=== PATIENT | female | born 1975 | race Caucasian/White ===

== ENCOUNTER 2017-08-28 08:14 | Emergency (ER) | payer OTHER ==
[~2017-08-28] VITALS: Ht 167.6 cm; Wt 149.7 kg
--- NOTE | ~2017-08-28 | EKG ---
[place] [address] [facility] [place] [address] ELECTROCARDIOGRAM REPORT Name: JUMA MAY Room #: PRE [facility]#: [id number] Admission: Attend Phys: Discharge: Date of : 77 Report #: [id number] THIS REPORT FOR: //name// [facility] ED Test Date: 2017-08-28 Test Time: 08:25:51 Pat Name: JUMA MAY Department: Room: Gender: F Wellness Nurse: FRANCHESKA : 1975 Requested By: Tonny Gann Order Number: [id number] MD: Chris Gillespie Measurements Intervals [place] Rate: 85 P: 38 [place]: 141 QRS: -16 QRSD: 98 T: 17 QT: 366 QTc: 436 Interpretive Statements Sinus rhythm Left ventricular hypertrophy Compared to ECG 12/22/2003 15:42:50 No significant change was found Electronically Signed On 08-28-2017 8:55:20 [employer] by Chris Gillespie [email or web address] <ELECTRONICALLY SIGNED> By: Chris Gillespie MD, [facility] 08/28/17 0855 0825 0825 Chris Gillespie MD, FACC /EPI
[~2017-08-28 08:14] MED LIST: ACYCLOVIR 200200 MG PO; COZAAR 50 MG TA50 M1 PO; HYDROCODON-ACE1 EAC7 PO; LASIX 20 MG TAB20 MG PO; LOPERAMIDE 2 MG2 M1 PO; LOSARTAN-HCTZ1 EACH PO; TORADOL 10 MG T10 MG PO
[2017-08-28] MEDS ORDERED: ASPIR 8181 MG PO (08:22)
[2017-08-28] MEDS ORDERED: FISH OIL 1,001000 M2 PO (08:22)
[2017-08-28] MEDS ORDERED: ONE-A-DAY WOMENS PO (08:22)
[2017-08-28] MEDS ORDERED: VITAMIN B-12500 MCG PO (08:22)
[2017-08-28] MEDS ORDERED: LISINOPRIL20 MG PO (08:22)
[2017-08-28 09:05] LABS: ABSOLUTE NEUTROPHILS 6.5 thou/uL (1.4-8.2); BASOPHILS 0.8 % (0.0-2.0); EOSINOPHILS 2.8 % (0.0-3.0); HEMOGLOBIN 14.4 gm/dL (12.0-15.0); LYMPHOCYTES 19.7 % (24.0-44.0); MCH 30.6 pg (26.0-34.0); MCHC 34.4 g/dL (28.0-37.0); MCV 89.1 fL (80.0-100.0); MONOCYTES 6.7 % (1.0-8.0); PLATELET COUNT 231 thou/uL (150-400); RBC 4.72 mil/uL (4.20-5.00); RDW 13.2 % (10.5-14.5); WBC 9.2 thou/uL (4.0-11.0)
[2017-08-28 09:14] LABS: ANION GAP 9 mmol/L (7-16); BUN 12 mg/dL (7-18); CALCIUM 9.2 mg/dL (8.5-10.1); CHLORIDE 105 mmol/L (98-107); CO2 28 mmol/L (21-32); CREATININE 0.8 mg/dL (0.6-1.0); GLUCOSE 105 mg/dL (74-106); POTASSIUM 4.2 mmol/L (3.5-5.1); SODIUM 142 mmol/L (136-145)
[2017-08-28 09:24] LABS: ALBUMIN 3.2 g/dL (3.4-5.0); SGOT 19 U/L (15-37); SGPT 29 U/L (30-65); TOTAL BILIRUBIN 0.5 mg/dL (<0.1-1.0); TROPONIN-I < 0.04 ng/mL (<0.06)
[2017-08-28] MEDS ORDERED: NAPROSYN500 MG PO (09:53)
[2017-08-28] MEDS ORDERED: ACYCLOVIR 200200 MG PO (09:53)
[2017-08-28 10:10] VITALS: BP 121/47
== END 2017-08-28 10:35 | disposition home or self-care (01) ==
LOC: ER 08:14
PROVIDERS: Emergency Medicine
DX: R07.89 Other chest pain (principal); I10 Essential (primary) hypertension; F17.210 Nicotine dependence, cigarettes, uncomplicated

== ENCOUNTER 2020-01-20 01:37 | Observation (INO) | payer OTHER ==
[2020-01-20] VITALS (7 sets, daily range): BP systolic 115–157; BP diastolic 61–101
[~2020-01-20] VITALS: Ht 167.6 cm; Wt 142.9 kg
[~2020-01-20 01:37] MED LIST changes: +ASPIR 8181 MG PO; +FISH OIL 1,001000 M2 PO; +LISINOPRIL20 MG PO; +NAPROSYN500 MG PO; +ONE-A-DAY WOMENS PO; +VITAMIN B-12500 MCG PO
[2020-01-20] MEDS ORDERED: SINGULAIR5 MG PO (01:50)
[2020-01-20 02:24] LABS: ABSOLUTE NEUTROPHILS 9.1 thou/uL (1.4-8.2); BASOPHILS 0.5 % (0.0-2.0); EOSINOPHILS 2.5 % (0.0-3.0); HEMATOCRIT 40.6 % (37.0-47.0); HEMOGLOBIN 13.3 gm/dL (12.0-15.0); LYMPHOCYTES 14.4 % (24.0-44.0); MCH 29.4 pg (26.0-34.0); MCHC 32.7 g/dL (28.0-37.0); MCV 89.8 fL (80.0-100.0); MONOCYTES 6.4 % (1.0-8.0); PLATELET COUNT 220 thou/uL (150-400); POLYS 76.2 % (36.0-66.0); RBC 4.52 mil/uL (4.20-5.00); RDW 13.4 % (10.5-14.5); WBC 11.9 thou/uL (4.0-11.0)
[2020-01-20 02:39] LABS: CALCIUM 8.4 mg/dL (8.5-10.1); CREATININE 0.7 mg/dL (0.6-1.0); POTASSIUM 4.3 mmol/L (3.5-5.1)
[2020-01-20 02:50] LABS: ALBUMIN 3.1 g/dL (3.4-5.0); TOTAL BILIRUBIN 0.4 mg/dL (0.2-1.0); TOTAL PROTEIN 6.8 g/dL (6.4-8.2); TROPONIN-I 0.11 ng/mL (<0.06)
--- NOTE | 2020-01-20 04:03 | NUR ---
CALLED TO GIVE REPORT AND WAS TOLD RN WILL CALL BACK
[2020-01-20 04:31] LABS: CHOLESTEROL 154 mg/dL (<200); SERUM ASSESSMENT Clear; TRIGLYCERIDE 131 mg/dL (<150); VLDL 26 mg/dL (<40)
[2020-01-20 04:32] LABS: HDL CHOLESTEROL 55 mg/dL (>40); LDL CHOLESTEROL 73 mg/dL (<100); TC:HDL 2.8 Ratio (Not establshd)
--- NOTE | 2020-01-20 07:53 | NUR ---
PT WAS AN ER ADMIT. PT WAS ADMTTED WITH PAIN TO JAW AND SHOULDER. PT IS STABLE UPON ARRIVAL TO THE UNIT. ADMISSION ASSESSMENT AND DOCUMENTED COMPLETED. NO CURRENT PAIN VERBALIZED. PT IS AMBULATORY. SCHEDULED MEDS ADMINISTERED TO PT. CONTINUE TO MONITOR. NO FURTHER NEEDS AT THIS TIME
--- NOTE | 2020-01-20 08:12 | EKG ---
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
--- NOTE | 2020-01-20 13:10 | 2DMMODE ---
[facility] [place] [address] 2 D/M-MODE ECHOCARDIOGRAM Name: JUMA MAY Carolyn Room #: 211-P ADM IN M.R.#: [id number] Admission: 01/20/20 Attend Phys: Amari Urbina MD Discharge: Date of : 77 Report #: [id number] THIS REPORT FOR: cc: Arcelia Stubbs MD, Paula V. MD Lammoglia, Francisco J. MD ~ APPROVED REPORT Study performed: 01/20/2020 12:26:39 EXAM: Comprehensive 2D, Doppler, and color-flow Echocardiogram Patient Location: Bedside Room #: 211 Status: routine BSA: 2.43 HR: 69 bpm BP: 144/101 mmHg Rhythm: NSR Other Information Study Quality: Adequate Technically limited study due to morbid obesity. Indications Elevated troponin. HTN. 2D Dimensions RVDd: 36.71 mm IVSd: 10.06 (7-11mm) LVOT Diam: 19.70 (18-24mm) LVDd: 48.41 mm PWd: 10.49 (7-11mm) Ascending Ao: 33.73 (22-36mm) LVDs: 31.69 (25-40mm) Aortic Root: 32.69 mm Volumes Left Atrial Volume (Systole) Single Plane 4CH: 44.35 mL Single Plane 2CH: 34.09 mL LA ESV Index: 19.00 mL/m2 Aortic Valve AoV Peak Adolfo.: 1.50 m/s AO Peak Gr.: 9.00 mmHg LVOT Max P.89 mmHg LVOT Max V: 1.11 m/s [facility] [place] [address] 2 D/M-MODE ECHOCARDIOGRAM Name: JUMA MAY Room #: 211-P [facility] IN ..#: [id number] Admission: 01/20/20 Attend Phys: Amari Urbina MD Discharge: Date of : 77 Report #: [id number] LUIS Vmax: 2.25 cm2 Mitral Valve E/A Ratio: 1.4 MV Decel. Time: 180.41 ms MV E Max Adolfo.: 0.98 m/s MV A Adolfo.: 0.68 m/s MV PHT: 52.32 ms IVRT: 72.66 ms Pulmonary Valve PV Peak Adolfo.: 1.00 m/s PV Peak Gr.: 3.99 mmHg Pulmonary Vein P Vein S: 0.62 m/s P Vein A: 0.39 m/s P Vein D: 0.37 m/s P Vein A Dur.: 83.0 msec P Vein S/D Ratio: 1.68 Tricuspid Valve TR Peak Adolfo.: 2.14 m/s RAP Estimate: 5.00 mmHg TR Peak Gr.: 18.28 mmHg PA Pressure: 23.00 mmHg Left Ventricle The left ventricle is normal size. There is normal LV segmental wall motion. There is normal left ventricular wall thickness. Left ventricular systolic function is normal. LVEF is 60-65%. The left ventricular diastolic function is normal. Right Ventricle The right ventricle is normal size. The right ventricular systolic function is normal. Atria The left atrium size is normal. The right atrium size is normal. Aortic Valve The aortic valve is normal in structure. No aortic regurgitation is present. There is no aortic valvular stenosis. Mitral Valve The mitral valve is normal in structure. Trace mitral regurgitation. No evidence of mitral valve stenosis. Tricuspid Valve [facility] [address] [place] [address] 2 D/M-MODE ECHOCARDIOGRAM Name: JUMA MAY Carolyn Room #: 211-P [facility] IN ..#: [id number] Admission: 01/20/20 Attend Phys: Amari Urbina MD Discharge: Date of : 77 Report #: [id number] The tricuspid valve is normal in structure. Trace tricuspid regurgitation. Estimated PAP is 20-25mmHg. Pulmonic Valve The pulmonary valve is normal in structure. Trace pulmonic regurgitation. Great Vessels The aortic root is normal in size. The ascending aorta is normal in size. IVC is normal in size and collapses >50% with inspiration. Pericardium There is no pericardial effusion. <Conclusion> The left ventricle is normal size. LVEF is 60-65%. The aortic valve is normal in structure. The mitral valve is normal in structure. Trace mitral regurgitation. The tricuspid valve is normal in structure. Trace tricuspid regurgitation. Estimated PAP is 20-25mmHg. The pulmonary valve is normal in structure. Trace pulmonic regurgitation. There is no pericardial effusion. <ELECTRONICALLY SIGNED> By: Denny John MD 01/20/20 1310 1310 131 Denny John MD /INF
--- NOTE | 2020-01-20 14:04 | NUR ---
PT CARE ASSUMED APPROX 0700. ASSESSMENT CHARTED. PT DENIES CHEST PAIN AND SOA. BP SLIGHTLY ELEVATED THIS AM. PT MEDICATED AFTER COVID RESULTS WERE NEGATIVE. VITAL SIGNS OTHERWISE STABLE. CARE OF PT TRANSFERRED TO ANOTHER NURSE AT APPROX 1300. RECEIVING NURSE DENIES QUESTIONS OR CONCERNS REGARDING PT'S POC OR PENDING DISCHARGE. PT UPDATED. PT ALSO DENIES QUESTIONS OR CONCERNS REGARDING POC. NO DISTRESS NOTED AT TIME CARE WAS TRANSFERRED.
--- NOTE | 2020-01-20 15:15 | NUR ---
ASSUMED CARE OF PT THIS AFTERNOON. VSS. PT DENIES PAIN/SOA. DISCHARGE ORDERS WRITTEN ON PT THIS AFTERNOON. DISCHARGE INSTRUCTIONS GIVEN TO PT AND VERBALIZED UNDERSTANDING. PT WAS ESCORTED OFF THE UNIT AND LEFT WITH ALL PERSONAL BELONGINGS. PT WAS PICKED UP BY HER DAD.
[2020-01-21 01:06] LABS: GLYCOHEMOGLOBIN (HGB A1C) 5.2 % (4.8-5.6)
== END 2020-01-20 15:25 | disposition home or self-care (01) ==
LOC: ER 01:37 → 2N 03:06 → EROBS 03:06 → 2N 04:23
PROVIDERS: Emergency Medicine; Nurse Practitioner Family; ADMIT Hospitalist; ATTEND Hospitalist
DX: R07.89 Other chest pain (principal); R06.02 Shortness of breath; Z20.828 Contact with and (suspected) exposure to other viral communicable diseases; D72.829 Elevated white blood cell count, unspecified; I10 Essential (primary) hypertension; F17.210 Nicotine dependence, cigarettes, uncomplicated

== ENCOUNTER 2020-06-16 16:14 | Emergency (ER) | payer OTHER ==
[~2020-06-16] VITALS: Ht 167.6 cm; Wt 127.0 kg
[~2020-06-16 16:14] MED LIST changes: +SINGULAIR5 MG PO
[2020-06-16 17:16] LABS: ABSOLUTE NEUTROPHILS 7.3 thou/uL (1.4-8.2); BASOPHILS 0.7 % (0.0-2.0); EOSINOPHILS 3.2 % (0.0-3.0); HEMOGLOBIN 13.3 gm/dL (12.0-15.0); LYMPHOCYTES 17.5 % (24.0-44.0); MCH 29.7 pg (26.0-34.0); MCHC 33.1 g/dL (28.0-37.0); MCV 89.7 fL (80.0-100.0); MONOCYTES 8.5 % (1.0-8.0); PLATELET COUNT 242 thou/uL (150-400); POLYS 70.1 % (36.0-66.0); RBC 4.46 mil/uL (4.20-5.00); RDW 13.4 % (10.5-14.5); WBC 10.4 thou/uL (4.0-11.0)
[2020-06-16 17:24] LABS: ANION GAP 12 mmol/L (7-16); BUN 16 mg/dL (7-18); CALCIUM 8.7 mg/dL (8.5-10.1); CHLORIDE 104 mmol/L (98-107); CO2 24 mmol/L (21-32); CREATININE 0.8 mg/dL (0.6-1.0); GLUCOSE 123 mg/dL (74-106); SODIUM 140 mmol/L (136-145)
[2020-06-16 17:33] LABS: APTT 27.6 Seconds (24.5-32.8); D-DIMER 0.69 ug/mLFEU (0.19-0.50)
[2020-06-16 17:34] LABS: ALBUMIN 3.2 g/dL (3.4-5.0); LIPASE 79 U/L (73-393); MAGNESIUM 1.9 mg/dL (1.8-2.4); SGOT 23 U/L (15-37); SGPT 34 U/L (30-65); TOTAL BILIRUBIN 0.2 mg/dL (0.2-1.0); TROPONIN-I <0.06 ng/mL (<0.06)
[2020-06-16] MEDS ORDERED: PROTONIX40 M2 PO (18:39)
[2020-06-16] MEDS ORDERED: MEDROL DOSPAK21 TA1 PO (19:10)
[2020-06-16 19:28] VITALS: BP 109/63
--- NOTE | 2020-06-17 07:02 | EKG ---
[facility] [place] [address] ELECTROCARDIOGRAM REPORT Name: JUMA MAY Room #: DEP [facility]#: [id number] Admission: 06/16/20 Attend Phys: Discharge: 06/16/20 Date of : 77 Report #: [id number] THIS REPORT FOR: cc: Enoc,Arcelia Stubbs,Marcus Cheng MD, MD [facility] ~ THIS REPORT FOR: //name// [facility] ED Test Date: 2020-06-16 Test Time: 16:32:42 Pat Name: JUMA MAY Department: Room: Gender: F Tram Operator: TEDDY : 1975 Requested By: Madina Morrissey Order Number: [id number] MD: Marcus Mullen Measurements Intervals [place] Rate: 84 P: 49 [place]: 145 QRS: -3 QRSD: 93 T: 22 QT: 359 QTc: 425 Interpretive Statements Sinus rhythm Low voltage, precordial leads RSR' in V1 or V2, right VCD or RVH Left ventricular hypertrophy Compared to ECG 01/20/2020 01:57:18 Right ventricular hypertrophy now present RSR' in V1 or V2 now present Electronically Signed On 06-17-2020 7:02:20 [employer] by Marcus Mullen [email or web address] <ELECTRONICALLY SIGNED> By: Marcus Mullen MD, [facility] 06/17/20 0702 31 31 Marcus Mullen MD, [facility] /EPI
== END 2020-06-16 19:29 | disposition home or self-care (01) ==
LOC: ER 16:14
PROVIDERS: Physician Assistant
DX: R09.1 Pleurisy (principal); I10 Essential (primary) hypertension; F17.210 Nicotine dependence, cigarettes, uncomplicated; Z79.82 Long term (current) use of aspirin; Z79.899 Other long term (current) drug therapy; Z88.1 Allergy status to other antibiotic agents